=== PATIENT | male | born 1955 | race African-American/Black ===

== ENCOUNTER 2024-06-04 09:31 | Outpatient (CLI) | payer MEDICARE ==
[2024-06-04 10:59] LABS: #Basophils 0.03 10x3/uL (0.0-0.2); #Eosinophils 0.04 10x3/uL (0.0-0.5); #Monocytes 0.34 10x3/uL (0.0-1.1); #Neutrophils 1.43 10x3/uL (1.5-8.4); %Eosinophils 1.4 % (0.0-6.0); %Lymphocytes 36.8 % (18.0-47.0); %Monocytes 11.7 % (0.0-10.0); %Neutrophils 49.1 % (40.0-75.0); Hematocrit 40.3 % (38.8-50.0); Hemoglobin 12.9 g/dL (13.5-17.5); Mean Corpuscular Volume 93.7 fL (81.2-95.1); Mean Platelet Volume 9.8 fL (7.4-10.4); Platelet Count 164 10x3/uL (150-450); RBC Distribution Width 12.1 % (11.5-14.5); White Blood Cell (WBC) Count 2.91 10x3/uL (3.5-10.5)
[2024-06-04 12:03] LABS: Anion Gap 13 mmol/L (10-20); BUN (Urea Nitrogen) 14 mg/dL (8.4-25.7); Calc. Creatinine Clearance 0 mL/min (70-130); Calcium 9.5 mg/dL (7.8-10.44); Carbon Dioxide 26 mmol/L (23-31); Chloride 107 mmol/L (98-107); Estimated GFR 82; Glucose 112 mg/dL (80-115); Potassium 4.1 mmol/L (3.5-5.1); Sodium 142 mmol/L (136-145)
== END 2024-06-04 09:32 | disposition home or self-care (01) ==
LOC: CSHLAB 09:31
PROVIDERS: ATTEND Surgery
DX: Z01.818 Encounter for other preprocedural examination (principal); K40.90 Unilateral inguinal hernia, without obstruction or gangrene, not specified as recurrent
CPT/HCPCS: 80048; 85025; 93005; 93010

== ENCOUNTER 2024-06-06 05:52 | Day surgery (SDC) | payer MEDICARE ==
[2024-06-04 09:55] VITALS: BMI 20.9
[2024-06-06] MEDS ORDERED: Bupivacaine/Epinephrine 0.25% 30 ML VIAL ONE (06:45)
[2024-06-06] MEDS ORDERED: PROPOFOL 20 ML ONE (07:01)
[2024-06-06] MEDS ORDERED: CEFAZOLIN 2 GM VIAL ONE (07:01)
[2024-06-06] MEDS ORDERED: Rocuronium Bromide 10 MG/ML (10ML VIAL) ONE (07:02)
[2024-06-06] MEDS ORDERED: Lidocaine 1% PF 5 ML VIAL ONE (07:02)
[2024-06-06] MEDS ORDERED: fentaNYL 50 mcg/mL 1 mL Vial ONE (07:02)
[2024-06-06] MEDS ORDERED: Dexamethasone 20 MG/5 ML VIAL ONE (07:38)
[2024-06-06] MEDS ORDERED: Ondansetron PF 4 MG/2 ML Vial ONE (07:38)
[2024-06-06] MEDS ORDERED: ePHEDrine Sulfate 50 MG/10 ML VIAL ONE (07:46)
[2024-06-06] MEDS ORDERED: SUGAMMADEX SODIUM 200 MG/2 ML VIAL ONE (08:38)
[2024-06-06] MEDS ORDERED: HYDROcodone/Acetaminophen 5/325 mg Tablet ONE (09:45)
== END 2024-06-06 10:15 | disposition home or self-care (01) ==
LOC: CSHSDC 05:52
PROVIDERS: ATTEND Surgery
PROC: 0YU64JZ Supplement Left Inguinal Region with Synthetic Substitute, Percutaneous Endoscopic Approach (ICD-10-PCS; principal; 2024-06-06)
DX: K40.90 Unilateral inguinal hernia, without obstruction or gangrene, not specified as recurrent (principal); I10 Essential (primary) hypertension; E78.5 Hyperlipidemia, unspecified; F17.290 Nicotine dependence, other tobacco product, uncomplicated; Z98.890 Other specified postprocedural states; Z79.899 Other long term (current) drug therapy
CPT/HCPCS: 49650; J1100; J2405; J2704; J3010; C1781; S2900